=== PATIENT | male | born 1965 | race Hispanic/Latino ===

== ENCOUNTER 2017-06-14 11:43 | Outpatient (CLI) | payer BC ==
--- NOTE | 2017-06-14 13:27 | Cat Scan Report ---
CT of the chest without contrast. History: Pulmonary nodule. Findings: There are no prior studies available for comparison. The mediastinal and hilar regions appear normal. There is a noncalcified 5 mm pleural-based pulmonary nodule in the right upper lobe posteriorly best seen on image #45 of series 2. M.D. lateral aspect of the lingula, just above the hemidiaphragm, there is a soft tissue density with linear parenchymal stranding emanating from the central area of soft tissue density. It has the appearance of parenchymal scarring no definite mass identified. No additional pulmonary nodules are seen. There is no pleural fluid. Images which include a portion of the upper abdomen demonstrate a 1.7 cm in diameter hypodensity in the superior aspect of the right lobe of the liver. No additional focal hepatic abnormalities are seen. A small gallstone is incidentally noted. Impression: 1. Parenchymal density in the lateral aspect of the lingula has features of parenchymal scarring. 2. 5 mm in diameter noncalcified pleural-based pulmonary nodule in the right upper lobe. This could represent a benign or metastatic process. A followup study is recommended in 3-6 months to evaluate stability. 3. Nonspecific hypodensity in the liver. The radiographic features however appear benign. 4. Cholelithiasis.
== END 2017-06-14 11:44 | disposition home or self-care (01) ==
LOC: CT 11:43
PROVIDERS: ATTEND Surgery Plastic and Reconstructive Surgery
DX: R91.1 Solitary pulmonary nodule (principal); K80.20 Calculus of gallbladder without cholecystitis without obstruction
CPT/HCPCS: 71250

== ENCOUNTER 2018-03-10 10:37 | Outpatient (CLI) | payer BC ==
[2018-03-10 11:05] LABS: Basophils % (Auto) 0.5 % (0.0-1.8); Eosinophils # (Auto) 0.1 K/mm3 (0.0-0.4); Eosinophils % (Auto) 1.6 % (0.0-4.3); Hematocrit 42.9 % (35.5-45.6); Hemoglobin 14.7 gm/dl (11.8-15.2); Lymphocytes # (Auto) 1.4 K/mm3 (1.2-5.4); Lymphocytes % (Auto) 30.7 % (13.4-35.0); Mean Corpuscular HGB Conc 34 % (32-34); Mean Corpuscular Hemoglobin 30 pg (28-32); Mean Corpuscular Volume 88 fl (84-94); Monocytes # (Auto) 0.4 K/mm3 (0.0-0.8); Monocytes % (Auto) 9.6 % (0.0-7.3); Platelet Count 228 K/mm3 (140-440); Red Blood Count 4.88 M/mm3 (3.65-5.03); Red Cell Distribution Width 13.5 % (13.2-15.2)
[2018-03-10 11:34] LABS: Creatinine,Urine 183.1 mg/dL (0.1-20.0)
[2018-03-10 11:35] LABS: Microalbumin/Creatinine Ratio 6.5 ug/mg
[2018-03-10 11:47] LABS: Alanine Aminotransferase 59 units/L (7-56); Albumin 4.5 g/dL (3.9-5); BUN/Creatinine Ratio 17; Blood Urea Nitrogen 17 mg/dL (9-20); Calcium 9.5 mg/dL (8.4-10.2); HDL Cholesterol 34 mg/dL (40-59); Hemolysis Index 10; LDL Cholesterol,Direct 136 mg/dL (50-130)
--- NOTE | 2018-03-10 13:30 | Cat Scan Report ---
CT chest without contrast: Followup right pulmonary nodule. Transverse images are obtained from the thoracic inlet to the upper abdomen. Coronal and sagittal 2-D reformatted images included. Comparison made to prior exam in May 2017. No significant hilar or mediastinal adenopathy identified. The central airways are patent. The unopacified thoracic aorta is unremarkable. The previously described upper lobe nodule currently identified on image 27 is unchanged. Of additional note is an 8.6 mm nodular density on image 53 just posterior to the major fissure in the right lower lobe which in retrospect is identified on the prior exam and has not enlarged. There is a scarlike area of density in the lateral lower left lung which remains unchanged as well. No new findings. The hypodensity in the dome of the right lobe of the liver remains unchanged. Stable gallstone. Impressions: 1. Stable right pulmonary nodules. 2. Gallstone. Recommendation: Repeat CT in 6 months to confirm nodules stability.
--- NOTE | 2018-03-10 13:51 | Cat Scan Report ---
CT abdomen without contrast: Liver lesion seen on prior chest CT in May 2017. Transverse images were obtained from the lower chest to the iliac crest with coronal and sagittal 2-D reformatted images. There is a 1.1 cm hypodensity in the superior right lobe of the liver. It has a low density level consistent with cyst. No other liver lesion identified. The liver appears normal in size and contour as does the spleen. There is a single small gallstone within otherwise unremarkable gallbladder. The adrenal glands appear normal. There is mild perinephric stranding. There is a 1 cm circumscribed hypodensity in the medial right kidney having low attenuation consistent with cyst. There is a nonobstructing 4 mm calculus in the central lower left kidney. Oral contrast was administered and the partially opacified small bowel and unopacified colon appear generally unremarkable. Impressions: 1. The liver lesion is consistent with cyst. 2. Left renal cyst and nonobstructing small calculus.
== END 2018-03-10 10:38 | disposition home or self-care (01) ==
LOC: CT 10:37
PROVIDERS: ATTEND Family Medicine
DX: K80.20 Calculus of gallbladder without cholecystitis without obstruction (principal); R91.8 Other nonspecific abnormal finding of lung field; E78.00 Pure hypercholesterolemia, unspecified; H93.19 Tinnitus, unspecified ear; R91.1 Solitary pulmonary nodule; K76.89 Other specified diseases of liver; N20.0 Calculus of kidney; N28.1 Cyst of kidney, acquired; I10 Essential (primary) hypertension; M19.90 Unspecified osteoarthritis, unspecified site; Z79.899 Other long term (current) drug therapy
CPT/HCPCS: 36415; 71250; 74150; 80053; 80061; 82043; 85025

== ENCOUNTER 2018-03-28 07:44 | Outpatient (CLI) | payer BC ==
[2018-03-28 09:55] LABS: Hepatitis A Antibody IgM Non-Reactive (NonReactive); Hepatitis B Core IgM Non-Reactive (NonReactive); Hepatitis B Surface Antigen Non-Reactive (Negative); Hepatitis C Virus Antibody Non-Reactive (NonReactive)
== END 2018-03-28 07:45 | disposition home or self-care (01) ==
LOC: LAB 07:44
PROVIDERS: ATTEND Family Medicine
DX: R74.0 Nonspecific elevation of levels of transaminase and lactic acid dehydrogenase [LDH] (principal); K76.89 Other specified diseases of liver; Z91.013 Allergy to seafood; Z88.6 Allergy status to analgesic agent
CPT/HCPCS: 36415; 80074; 86709

== ENCOUNTER 2019-06-27 07:51 | Outpatient (CLI) | payer BC ==
[2019-06-27 08:27] LABS: Basophils % (Auto) 0.7 % (0.0-1.8); Eosinophils # (Auto) 0.1 K/mm3 (0.0-0.4); Eosinophils % (Auto) 2.2 % (0.0-4.3); Hematocrit 42.4 % (35.5-45.6); Hemoglobin 14.4 gm/dl (11.8-15.2); Lymphocytes # (Auto) 1.2 K/mm3 (1.2-5.4); Lymphocytes % (Auto) 29.1 % (13.4-35.0); Mean Corpuscular HGB Conc 34 % (32-34); Mean Corpuscular Volume 87 fl (84-94); Monocytes # (Auto) 0.4 K/mm3 (0.0-0.8); Monocytes % (Auto) 8.8 % (0.0-7.3); Platelet Count 212 K/mm3 (140-440); Red Blood Count 4.86 M/mm3 (3.65-5.03); Red Cell Distribution Width 13.3 % (13.2-15.2)
[2019-06-27 08:30] LABS: Bilirubin,Urine NEG (Negative); Blood,Urine NEG (Negative); Color,Urine Yellow (Yellow); Protein,Urine <15 mg/dL mg/dL (Negative); Urobilinogen,Urine < 2.0 mg/dL (<2.0); WBC,Urine < 1.0 /HPF (0.0-6.0)
[2019-06-27 08:51] LABS: Alanine Aminotransferase 39 units/L (7-56); Albumin 4.5 g/dL (3.9-5); BUN/Creatinine Ratio 18; Blood Urea Nitrogen 18 mg/dL (9-20); Calcium 9.2 mg/dL (8.4-10.2); Chol/HDL Ratio 4.95 %; HDL Cholesterol 45 mg/dL (40-59); Hemolysis Index 2; LDL Cholesterol,Direct 166 mg/dL (50-130)
[2019-06-30 12:32] LABS: ANA Screen, IFA Negative (Negative)
== END 2019-06-27 07:52 | disposition home or self-care (01) ==
LOC: LAB 07:51
PROVIDERS: ATTEND Family Medicine
DX: R74.0 Nonspecific elevation of levels of transaminase and lactic acid dehydrogenase [LDH] (principal); I10 Essential (primary) hypertension; M19.90 Unspecified osteoarthritis, unspecified site; Z79.899 Other long term (current) drug therapy
CPT/HCPCS: 36415; 80053; 80061; 81001; 82103; 82390; 82728; 83520; 84153; 84443; 85025; 86038

== ENCOUNTER 2019-07-03 07:45 | Outpatient (CLI) | payer BC ==
--- NOTE | 2019-07-03 09:50 | Cat Scan Report ---
CT CHEST WITHOUT CONTRAST INDICATION / CLINICAL INFORMATION: R91.1 PULMONARY NODULE. TECHNIQUE: Axial CT images were obtained through the chest without contrast. Sagittal and coronal reformatted im ages. All CT scans at this location are performed using CT dose reduction for ALARA by means of autom ated exposure control. COMPARISON: 03/10/2018. 06/14/2017 FINDINGS: HEART: No significant abnormality. THORACIC AORTA: No significant abnormality. MEDIASTINUM and YAO: No significant abnormality. LUNGS: No acute air space or interstitial disease. Previously described 8 mm well-circumscribed nodu le in the right lung is unchanged. I suspect this represents a pleural fold and not a true nodule. Th ere is also a 3 mm subpleural nodule in the posterior right apex which is unchanged. No new or suspic ious pulmonary nodule is identified. PLEURA: No significant pleural effusion. No pneumothorax. SKELETAL SYSTEM: No significant abnormality. UPPER ABDOMEN: Stable 1.6 cm right hepatic lobe cyst and cholecystectomy changes. ADDITIONAL FINDINGS: None. IMPRESSION: No change Signer Name: Michael Damico Jr, MD Signed: 07/03/2019 9:46 AM Workstation Name: [id number]
== END 2019-07-03 07:46 | disposition home or self-care (01) ==
LOC: CT 07:45
PROVIDERS: ATTEND Family Medicine
DX: R91.1 Solitary pulmonary nodule (principal); I10 Essential (primary) hypertension; M19.90 Unspecified osteoarthritis, unspecified site; Z98.890 Other specified postprocedural states
CPT/HCPCS: 71250

== ENCOUNTER 2019-09-20 08:01 | Outpatient (CLI) | payer BC ==
[2019-09-20 08:25] LABS: Basophils % (Auto) 0.3 % (0.0-1.8); Eosinophils # (Auto) 0.1 K/mm3 (0.0-0.4); Eosinophils % (Auto) 2.1 % (0.0-4.3); Hematocrit 41.1 % (35.5-45.6); Hemoglobin 14.3 gm/dl (11.8-15.2); Lymphocytes # (Auto) 1.3 K/mm3 (1.2-5.4); Lymphocytes % (Auto) 33.8 % (13.4-35.0); Mean Corpuscular HGB Conc 35 % (32-34); Mean Corpuscular Volume 87 fl (84-94); Monocytes # (Auto) 0.4 K/mm3 (0.0-0.8); Monocytes % (Auto) 9.6 % (0.0-7.3); Platelet Count 237 K/mm3 (140-440); Red Blood Count 4.73 M/mm3 (3.65-5.03); Red Cell Distribution Width 13.5 % (13.2-15.2)
[2019-09-20 08:49] LABS: Bilirubin,Urine NEG (Negative); Blood,Urine NEG (Negative); Color,Urine Yellow (Yellow); Mucus,Urine FEW /HPF; Protein,Urine <15 mg/dL mg/dL (Negative); RBC,Urine < 1.0 /HPF (0.0-6.0); Urobilinogen,Urine < 2.0 mg/dL (<2.0); WBC,Urine < 1.0 /HPF (0.0-6.0)
[2019-09-20 09:01] LABS: Alanine Aminotransferase 30 units/L (7-56); Albumin 4.5 g/dL (3.9-5); BUN/Creatinine Ratio 15; Blood Urea Nitrogen 18 mg/dL (9-20); Calcium 9.4 mg/dL (8.4-10.2); Hemolysis Index 10; LDL Cholesterol,Direct 123 mg/dL (50-130)
[2019-09-20 10:17] LABS: Chol/HDL Ratio 4.21 %; HDL Cholesterol 42 mg/dL (40-59)
[2019-09-20 12:02] LABS: Microalbumin/Creatinine Ratio 7.9 ug/mg
== END 2019-09-20 08:02 | disposition home or self-care (01) ==
LOC: LAB 08:01
PROVIDERS: ATTEND Family Medicine
DX: E78.00 Pure hypercholesterolemia, unspecified (principal); H93.19 Tinnitus, unspecified ear; Z79.899 Other long term (current) drug therapy
CPT/HCPCS: 36415; 80053; 80061; 81001; 82043; 85025

== ENCOUNTER 2020-03-07 10:09 | Emergency (ER) | payer BC ==
[2020-03-07] MEDS ORDERED: SODIUM CHLORIDE 0.9% 1000 ML 1,000 ML IV ONE (11:19)
[2020-03-07] MEDS ORDERED: MORPHINE 4 MG/1 ML INJ IV STA (11:19)
[2020-03-07] MEDS ORDERED: ONDANSETRON 4 MG/2 ML INJ IV STA (11:19)
--- NOTE | 2020-03-07 11:27 | Emergency Department Report ---
ED Abdominal Pain HPI - General Chief Complaint: Abdominal Pain Stated Complaint: LFT SIDE PAIN/BACK PAIN Time Seen by Provider: 03/07/20 11:19 Source: patient Mode of arrival: Ambulatory Limitations: No Limitations - History of Present Illness Initial Comments: 54-year-old male presents emergency department complaining of a couple day history of progressively worsening left lower quadrant abdominal pain which seems to be originating from left flank area. Pain is associated with constipation reports no diarrhea, no fever chills or sweats, no hematuria, no hematemesis no hematochezia. He reports no dysuria no increased urgency no decreased urine production. Reports no chest pain or palpitations. No headache or dizziness. No trauma. MD Complaint: abdominal pain Location: LLQ Radiation: LLQ Migration to: no migration Severity: mild Quality: aching, sharp - Related Data Previous Rx's Medication Instructions Recorded Last Taken Type traMADoL [Ultram 50 MG tab] 50 mg PO Q6HR PRN #12 tablet 02/15/20 Unknown Rx Sulfamethoxazole/Trimethoprim 1 each PO BID #14 tablet 03/07/20 Unknown Rx [Bactrim DS TAB] Tamsulosin [Flomax] 0.4 mg PO QDAY #10 cap 03/07/20 Unknown Rx traMADoL [Ultram] 50 mg PO Q6HR PRN #14 tablet 03/07/20 Unknown Rx Allergies Allergy/AdvReac Type Severity Reaction Status Date / Time naproxen AdvReac Rash Unverified 06/14/17 11:43 shellfish derived AdvReac Nausea Unverified 06/14/17 11:44 ED Review of Systems ROS: Stated complaint: LFT SIDE PAIN/BACK PAIN Other details as noted in HPI Comment: All other systems reviewed and negative ED Past Medical Hx - Past Medical History Previous Medical History?: Yes Hx Hypertension: Yes Hx Arthritis: Yes - Surgical History Past Surgical History?: Yes Additional Surgical History: shoulder repair, hernia repair - Social History Smoking Status: Never Smoker - Medications Home Medications: Home Medications Medication Instructions Recorded Confirmed Last Taken Type traMADoL [Ultram 50 MG tab] 50 mg PO Q6HR PRN #12 tablet 02/15/20 Unknown Rx Sulfamethoxazole/Trimethoprim 1 each PO BID #14 tablet 03/07/20 Unknown Rx [Bactrim DS TAB] Tamsulosin [Flomax] 0.4 mg PO QDAY #10 cap 03/07/20 Unknown Rx traMADoL [Ultram] 50 mg PO Q6HR PRN #14 tablet 03/07/20 Unknown Rx ED Physical Exam - General Limitations: No Limitations General appearance: alert, in no apparent distress - Head Head exam: Present: atraumatic, normocephalic - Eye Eye exam: Present: normal appearance, PERRL Pupils: Present: normal accommodation - ENT ENT exam: Present: normal exam, mucous membranes moist, TM's normal bilaterally - Neck Neck exam: Present: normal inspection, full ROM - Respiratory Respiratory exam: Present: normal lung sounds bilaterally. Absent: respiratory distress, wheezes, chest wall tenderness - Cardiovascular Cardiovascular Exam: Present: regular rate, normal rhythm. Absent: systolic murmur, diastolic murmur, rubs, gallop - GI/Abdominal GI/Abdominal exam: Present: soft, tenderness (To left lower quadrant with deep palpation.), normal bowel sounds. Absent: guarding, rebound, hypoactive bowel sounds, organomegaly, mass, bruit - Rectal Rectal exam: Present: deferred - Extremities Exam Extremities exam: Present: normal inspection - Back Exam Back exam: Present: normal inspection, CVA tenderness (L) - Neurological Exam Neurological exam: Present: alert, oriented X3 - Psychiatric Psychiatric exam: Present: normal affect, normal mood - Skin Skin exam: Present: warm, dry, intact, normal color. Absent: rash ED Course Vital Signs 03/07/20 03/07/20 03/07/20 10:17 10:21 11:44 Temperature 97.9 F Pulse Rate 69 Respiratory 20 18 Rate Blood Pressure 147/84 03/07/20 03/07/20 03/07/20 12:06 12:52 13:22 Temperature Pulse Rate Respiratory 18 18 18 Rate Blood Pressure 03/07/20 13:42 Temperature Pulse Rate Respiratory 18 Rate Blood Pressure ED Medical Decision Making - Lab Data Result diagrams: 03/07/20 11:44 03/07/20 11:44 - Radiology Data Radiology results: report reviewed [facility] [address] [place] [address] Cat Scan Report Signed Patient: ANTHONY DELANEY MR#: [id number] : 1965 Acct:[id number] Age/Sex: 54 / M ADM Date: 03/07/20 Loc: ED Attending Dr: Ordering Physician: JOSE DANIEL SALAS Date of Service: 03/07/20 Procedure(s): CT abdomen pelvis w con Accession Number(s): [id number] cc: JOSE DANIEL SALAS CT abdomen pelvis w con INDICATION: left Lower ABD Pain. TECHNIQUE: All CT scans at this location are performed using the following dose modulation technique: Automated exposure control. Helical slices were obtained through the abdomen and pelvis following the administration of 100 cc of Omnipaque 300 COMPARISON: CT scan dated 03/10/2018 FINDINGS: Abdomen: No acute abnormality is seen in the lower chest. There is a cyst in the dome of the liver which is unchanged. There is fatty infiltration of the liver. The spleen, pancreas, adrenal glands, and right kidney show no acute abnormality. There is cholelithiasis is unchanged. There is mild left hydroureteronephrosis. There is a cyst in the upper pole of the left kidney. There is mild perinephric edema on the left. Pelvis: There is a 8 x 5 mm stone at the left ureterovesical junction There is no adenopathy or inflammation. The appendix is unremarkable. There is a fat-containing left inguinal hernia. On review of bone windows, no acute osseous abnormalities are seen. IMPRESSION: 1. There is an 8mm long by 5 mm wide stone at the left ureterovesical junction. There is mild left hydroureteronephrosis. There is mild perinephric edema on the left. 2. There is a fat-containing left inguinal hernia. Signer Name: Cleve Badillo MD Signed: 03/07/2020 2:07 PM Workstation Name: [id number] Transcribed By: Dictated By: Cleve Badillo MD Electronically Authenticated By: Cleve Badillo MD Signed Date/Time: 03/07/20 1407 DD/ 140 TD/TT: - Medical Decision Making Clinically the patient presents with nephrolithasis. IV pain medications, antiemetics, and IV fluids were given. A CT Abdomen/Pelvis was obtained for concern for a possible obstructing kidney stone and to rule out other pathologic conditions. The CT confirmed revealed a stone at XXX. The patient's labs were significant for XXX. With pain medication the patient improved significantly. The patient is referred to the on-call urologist for follow up and is discharged with oral narcotics for pain control, Flomax, antiemetics, and given the following return precautions: Fever > 100.5, pain not controlled with narcotics, vomiting or any other concerns and to strain the urine Critical care attestation.: If time is entered above; I have spent that time in minutes in the direct care of this critically ill patient, excluding procedure time. ED Disposition Clinical Impression: Kidney stone Disposition: DC-01 TO HOME OR SELFCARE Is pt being admited?: No Does the pt Need Aspirin: No Condition: Stable Instructions: Kidney Stones (ED), Ureteroscopy (GEN), How to Strain Your Urine (ED) Prescriptions: Sulfamethoxazole/Trimethoprim [Bactrim DS TAB] 1 each PO BID #14 tablet Tamsulosin [Flomax] 0.4 mg PO QDAY #10 cap traMADoL [Ultram] 50 mg PO Q6HR PRN #14 tablet PRN Reason: Pain Referrals: [facility] [Referring] - 3-5 Days [facility] [Provider Group] - 3-5 Days
[2020-03-07 11:55] LABS: Basophils % (Auto) 0.1 % (0.0-1.8); Eosinophils % (Auto) 0.3 % (0.0-4.3); Hematocrit 46.3 % (35.5-45.6); Hemoglobin 15.5 gm/dl (11.8-15.2); Lymphocytes # (Auto) 1.6 K/mm3 (1.2-5.4); Lymphocytes % (Auto) 16.9 % (13.4-35.0); Mean Corpuscular HGB Conc 34 % (32-34); Mean Corpuscular Volume 90 fl (84-94); Monocytes # (Auto) 0.8 K/mm3 (0.0-0.8); Monocytes % (Auto) 8.9 % (0.0-7.3); Platelet Count 258 K/mm3 (140-440); Red Blood Count 5.16 M/mm3 (3.65-5.03); Red Cell Distribution Width 13.9 % (13.2-15.2)
[2020-03-07 12:17] LABS: Alanine Aminotransferase 31 units/L (7-56); BUN/Creatinine Ratio 18; Blood Urea Nitrogen 22 mg/dL (9-20); Hemolysis Index 9
[2020-03-07] MEDS ORDERED: MORPHINE 4 MG/1 ML INJ IV ONE (12:47)
[2020-03-07 13:20] LABS: Bilirubin,Urine NEG (Negative); Blood,Urine LG (Negative); Color,Urine Yellow (Yellow); Hyaline Casts,Urine 1 /LPF; Mucus,Urine FEW /HPF; Protein,Urine <15 mg/dL mg/dL (Negative); Urobilinogen,Urine < 2.0 mg/dL (<2.0)
[2020-03-07] MEDS ORDERED: KETOROLAC 30 MG/1 ML INJ IV ONE (13:38)
[2020-03-07] MEDS ORDERED: KETOROLAC 30 MG/1 ML INJ ONE (13:38)
--- NOTE | 2020-03-07 14:11 | Cat Scan Report ---
CT abdomen pelvis w con INDICATION: left Lower ABD Pain. TECHNIQUE: All CT scans at this location are performed using the following dose modulation technique: Automated exposure control. Helical slices were obtained through the abdomen and pelvis following the administr ation of 100 cc of Omnipaque 300 COMPARISON: CT scan dated 03/10/2018 FINDINGS: Abdomen: No acute abnormality is seen in the lower chest. There is a cyst in the dome of the liver wh ich is unchanged. There is fatty infiltration of the liver. The spleen, pancreas, adrenal glands, and right kidney show no acute abnormality. There is cholelithiasis is unchanged. There is mild left hydroureteronephrosis. There is a cyst in the upper pole of the left kidney. There is mild perinephric edema on the left. Pelvis: There is a 8 x 5 mm stone at the left ureterovesical junction There is no adenopathy or inflammation. The appendix is unremarkable. There is a fat-containing left inguinal hernia. On review of bone windows, no acute osseous abnormalities are seen. IMPRESSION: 1. There is an 8mm long by 5 mm wide stone at the left ureterovesical junction. There is mild left hy droureteronephrosis. There is mild perinephric edema on the left. 2. There is a fat-containing left inguinal hernia. Signer Name: Cleve Badillo MD Signed: 03/07/2020 2:07 PM Workstation Name: [id number]
[2020-03-07 17:00] VITALS: BP 144/82
== END 2020-03-07 15:29 | disposition home or self-care (01) ==
LOC: ED 10:09
DX: N20.0 Calculus of kidney (principal)
CPT/HCPCS: 36415; 74177; 80053; 81001; 83690; 85025; 96374; 96375; 96376; 99284; J1885; J2270; J2405; J7030; Q9967

== ENCOUNTER 2020-07-23 07:30 | Outpatient (CLI) | payer BC ==
[2020-07-23 08:04] LABS: Basophils % (Auto) 0.4 % (0.0-1.8); Eosinophils # (Auto) 0.1 K/mm3 (0.0-0.4); Eosinophils % (Auto) 2.6 % (0.0-4.3); Hematocrit 42.3 % (35.5-45.6); Hemoglobin 14.5 gm/dl (11.8-15.2); Lymphocytes # (Auto) 1.3 K/mm3 (1.2-5.4); Mean Corpuscular HGB Conc 34 % (32-34); Mean Corpuscular Volume 88 fl (84-94); Monocytes # (Auto) 0.4 K/mm3 (0.0-0.8); Monocytes % (Auto) 8.7 % (0.0-7.3); Platelet Count 228 K/mm3 (140-440); Red Blood Count 4.78 M/mm3 (3.65-5.03); Red Cell Distribution Width 13.5 % (13.2-15.2)
[2020-07-23 08:29] LABS: Alanine Aminotransferase 38 units/L (7-56); Albumin 4.3 g/dL (3.9-5); BUN/Creatinine Ratio 15; Blood Urea Nitrogen 16 mg/dL (9-20); Calcium 9.6 mg/dL (8.4-10.2); Chol/HDL Ratio 4.54 %; HDL Cholesterol 42 mg/dL (40-59); Hemolysis Index 2; LDL Cholesterol,Direct 135 mg/dL (50-130)
== END 2020-07-23 07:31 | disposition home or self-care (01) ==
LOC: LAB 07:30
PROVIDERS: ATTEND Internal Medicine
DX: Z13.21 Encounter for screening for nutritional disorder (principal); Z13.29 Encounter for screening for other suspected endocrine disorder; Z13.220 Encounter for screening for lipoid disorders; Z00.00 Encounter for general adult medical examination without abnormal findings
CPT/HCPCS: 36415; 80053; 80061; 82306; 82607; 83036; 84443; 85025

== ENCOUNTER 2020-12-15 08:05 | Outpatient (CLI) | payer BC ==
[2020-12-15 08:53] LABS: Chol/HDL Ratio 4.5 %
== END 2020-12-15 08:06 | disposition home or self-care (01) ==
LOC: LAB 08:05
PROVIDERS: ATTEND Internal Medicine
DX: E78.5 Hyperlipidemia, unspecified (principal); R39.11 Hesitancy of micturition
CPT/HCPCS: 36415; 80061; 84153

== ENCOUNTER 2021-08-03 11:06 | Outpatient (CLI) | payer BC ==
[2021-08-03 11:34] LABS: Basophils % (Auto) 0.2 % (0.0-1.8); Eosinophils # (Auto) 0.1 K/mm3 (0.0-0.4); Eosinophils % (Auto) 1.6 % (0.0-4.3); Hematocrit 44.2 % (35.5-45.6); Hemoglobin 14.6 gm/dl (11.8-15.2); Lymphocytes # (Auto) 1.5 K/mm3 (1.2-5.4); Mean Corpuscular HGB Conc 33 % (32-34); Mean Corpuscular Volume 87 fl (84-94); Monocytes # (Auto) 0.4 K/mm3 (0.0-0.8); Monocytes % (Auto) 7.5 % (0.0-7.3); Platelet Count 232 K/mm3 (140-440); Red Blood Count 5.08 M/mm3 (3.65-5.03); Red Cell Distribution Width 13.5 % (13.2-15.2)
[2021-08-03 11:58] LABS: Alanine Aminotransferase 58 units/L (7-56); Albumin 4.6 g/dL (3.9-5); BUN/Creatinine Ratio 16; Blood Urea Nitrogen 16 mg/dL (9-20); Calcium 9.3 mg/dL (8.4-10.2); HDL Cholesterol 40 mg/dL (40-59); Hemolysis Index 6; LDL Cholesterol,Direct 133 mg/dL (50-130)
== END 2021-08-03 11:07 | disposition home or self-care (01) ==
LOC: LAB 11:06
PROVIDERS: ATTEND Internal Medicine
DX: U07.1 COVID-19 (principal); Z00.00 Encounter for general adult medical examination without abnormal findings; E55.9 Vitamin D deficiency, unspecified; Z13.29 Encounter for screening for other suspected endocrine disorder; Z13.1 Encounter for screening for diabetes mellitus; E78.5 Hyperlipidemia, unspecified
CPT/HCPCS: 36415; 80053; 80061; 82306; 83036; 84153; 84443; 85025

== ENCOUNTER 2021-12-09 09:20 | Outpatient (CLI) | payer BC ==
[2021-12-09 10:10] LABS: Alanine Aminotransferase 37 units/L (7-56); Albumin 4.5 g/dL (3.9-5); Chol/HDL Ratio 4.47 %; HDL Cholesterol 40 mg/dL (40-59); LDL Cholesterol,Direct 124 mg/dL (50-130)
[2021-12-09 10:24] LABS: Bilirubin,Direct < 0.2 mg/dL (0-0.2)
[2021-12-09 14:41] LABS: Hepatitis B Surface Antigen Non-Reactive (Negative); Hepatitis C Virus Antibody Non-Reactive (NonReactive)
== END 2021-12-09 09:21 | disposition home or self-care (01) ==
LOC: LAB 09:20
PROVIDERS: ATTEND Internal Medicine
DX: E78.5 Hyperlipidemia, unspecified (principal); R94.5 Abnormal results of liver function studies; R73.03 Prediabetes
CPT/HCPCS: 36415; 80061; 80074; 80076; 83036